=== PATIENT | female | born 1970 | race Hispanic/Latino ===

== ENCOUNTER 2018-01-28 01:11 | Emergency (ER) | payer SELFPAY ==
[2018-01-28] MEDS ORDERED: LORAZEPAM 1 MG TABLET ONE (02:18)
[2018-01-28 02:44] LABS: Absolute Lymphocytes (CBC) 5.5 K/uL (0.7-4.9); Absolute Monocytes 0.6 K/uL (0.1-1.3); Absolute Neutrophil 6.2 K/uL (1.8-8.0); Basophils % 0.6 % (0-1.3); Eosinophils % 2.7 % (0-4.4); Hematocrit 35.1 % (36.0-45.0); Lymphocytes % 43.3 % (15.3-44.8); MCH 22.9 pg (27.0-35.0); MCV 72.3 fL (80-100); MPV 9.2 fL (7.6-11.3); Monocytes % 4.3 % (3.3-12.3); RBC Red Blood Cell Count 4.86 M/uL (3.86-4.86)
[2018-01-28 02:46] LABS: Protime INR 0.92
[2018-01-28 02:54] LABS: Glucose Level 199 mg/dL (65-120)
[2018-01-28 02:58] LABS: CKMB Creatine Kinase MB 1.8 ng/ml (0.3-4.0)
[2018-01-28 03:00] LABS: ALT/SGPT 31 IU/L (10-60); AST/SGOT 24 IU/L (10-42); Albumin 3.9 g/dL (3.2-5.5); Alkaline Phosphatase 92 IU/L (42-121); BUN Blood Urea Nitrogen 20 mg/dL (6-20); Bilirubin Direct < 0.1 mg/dL (0-0.2); Bilirubin Total 0.4 mg/dL (0.3-1.2); Creatine Phosphokinase 62 IU/L (22-269); Magnesium 1.7 mg/dL (1.8-2.5); Protein, Total 7.6 g/dL (6.0-8.3)
[2018-01-28 03:14] LABS: Bicarbonate 18 mEq/L (21-31); Sodium Level 136 mEq/L (135-145)
[2018-01-28 03:16] LABS: Potassium 2.8 mEq/L (3.6-5.0)
--- NOTE | 2018-01-28 03:37 | ER ---
Nurse's Notes [facility] Name: Ml Grullon Age: 47 yrs Sex: Female : 1970 Arrival Date: 01/28/2018 Time: 01:12 Bed 8 Private MD: Diagnosis: Hypokalemia Presentation: 01/28 01:19 Presenting complaint: Patient states: "I was sleeping and woke up with an anxiety ao attack. I feeling like having chest palpitation." Significant other reports stress event had occurred in the past few months. Patient denies chest pain and is extremely anxious. Transition of care: patient was not received from another setting of care. Onset of symptoms was January 28, 2018 at 00:00. Initial Sepsis Screen: Does the patient meet any 2 criteria? No. Patient's initial sepsis screen is negative. Does the patient have a suspected source of infection? No. Patient's initial sepsis screen is negative. Care prior to arrival: None. 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 - Social history:: Smoking status: Patient/guardian denies using tobacco, Patient/guardian denies using alcohol, street drugs. Screenin:29 Abuse screen: Denies threats or abuse. Denies injuries from another. Nutritional lp1 screening: No deficits noted. Tuberculosis screening: No symptoms or risk factors identified. Fall Risk None identified. Assessment: 01:26 General: Appears distressed, Behavior is anxious. Pain: Denies pain. Neuro: Level of lp1 Consciousness is awake, alert, obeys commands, Oriented to person, place, time, situation. Cardiovascular: Reports palpitations, Capillary refill < 3 seconds in bilateral fingers toes Patient's skin is warm and dry. Rhythm is sinus rhythm. Respiratory: Reports shortness of breath Airway is patent Trachea midline Respiratory effort is even, Respiratory pattern is hyperventilation Breath sounds are clear bilaterally. Onset: The symptoms/episode began/occurred just prior to arrival, the patient has moderate shortness of breath. GI: Abdomen is non-distended. : No signs and/or symptoms were reported regarding the genitourinary system. EENT: No signs and/or symptoms were reported regarding the EENT system. Derm: Skin is pink, warm \\T\\ dry. Musculoskeletal: Circulation, motion, and sensation intact. 02:02 Reassessment: Patient appears more calm at this time, but states she feels anxiety lp1 returning, beginning to hyperventilate, coached for slow deep breathing. 03:30 Reassessment: Patient is alert, oriented x 3, equal unlabored respirations, skin lp1 warm/dry/pink. Patient states feeling better. Patient states symptoms have improved. 03:53 Reassessment: DC instructions given to patient and significant other. Patient agree to ao follow up and the medications regime. Patient has no questions at this time. Vital Signs: 01:22 BP 163 / 90; Pulse 104; Resp 30; Temp 98.4(O); Pulse Ox 100% on R/A; Weight 83.91 kg ao (R); Height 5 ft. 3 in. (160.02 cm) (R); Pain 0/10; 01:29 BP 169 / 79; Pulse 104; Resp 26; Pulse Ox 100% on R/A; lp1 02:01 BP 174 / 82; Pulse 90; Resp 14; Pulse Ox 98% on R/A; lp1 03:00 BP 160 / 73; Pulse 103; Resp 19; Pulse Ox 98% on R/A; lp1 03:54 BP 160 / 79; Pulse 86; Resp 18; Pulse Ox 99% on R/A; ao 01:22 Body Mass Index 32.77 (83.91 kg, 160.02 cm) ao ED Course: 01:12 Patient arrived in ED. ds1 01:22 Triage completed. ao 01:24 Arm band placed on right wrist. Patient placed in an exam room, on a stretcher, on ao oxygen, on pulse oximetry, Patient notified of wait time. 01:25 Marjorie Beal FNP-C is PHCP. snw 01:25 Luann Villalpando MD is Attending Physician. snw 01:25 Anu Peñaloza RN is Primary Nurse. lp1 01:28 Patient has correct armband on for positive identification. Placed in gown. Bed in low lp1 position. project lead on. Pulse ox on. NIBP on. 01:28 EKG done, by ED staff, reviewed by Marjorie BARRERA. eb 01:40 Inserted saline lock: 20 gauge in right antecubital area, using aseptic technique. eb Blood collected. 01:50 X-ray completed. Portable x-ray completed in exam room. Patient tolerated procedure mh1 well. 01:52 XRAY Chest (1 view) In Process Unspecified. EDMS 03:16 Notified ED physician of a critical lab result(s). potassium of 2.8. fc 03:52 No provider procedures requiring assistance completed. IV discontinued, intact, ao bleeding controlled, No redness/swelling at site. Pressure dressing applied. Administered Medications: 02:30 Drug: Ativan 2 mg Route: PO; tl2 03:30 Follow up: Response: Marked relief of symptoms; Anxiety decreased lp1 03:42 Drug: Klor-Con Effervescent Tablet 50 mEq Route: PO; ao 04:00 Follow up: Response: No adverse reaction lp1 Outcome: 03:36 Discharge ordered by . paul 03:52 Discharged to home ambulatory. ao 03:52 Condition: stable 03:52 Discharge instructions given to patient, significant other, Instructed on discharge instructions, follow up and referral plans. Demonstrated understanding of instructions, follow-up care, medications, Prescriptions given X 2. 03:56 Patient left the ED. ao Signatures: Dispatcher [employer] EDVT Marjorie Beal FNP-C FNP-CsnGali Guerrero 1 Katey Cohen RN RN fc Sanford, Demi 1 Anu Peñaloza RN RN lp1 Ronen Pizano RN RN ao Knox, Taylor, RN RN tl2 Luann Villalpando MD MD ma2 Cherie Ball Corrections: (The following items were deleted from the chart) 01:28 01:26 Respiratory: Reports shortness of breath Airway is patent Trachea midline lp1 Respiratory effort is even, Respiratory pattern is hyperventilation Breath sounds are clear bilaterally. lp1
--- NOTE | 2018-01-28 03:37 | EDPHYS ---
Physician Documentation [facility] Name: Ml Grullon Age: 47 yrs Sex: Female : 1970 Arrival Date: 01/28/2018 Time: 01:12 Bed 8 Private MD: ED Physician Luann Villalpando HPI: 01/28 01:50 This 47 yrs old Female presents to ER via Ambulatory with complaints of snw Anxiety, Shortness Of Breath. 01:50 Onset: The symptoms/episode began/occurred acutely. Associated signs and symptoms: The snw patient has no apparent associated signs or symptoms. Modifying factors: The patient symptoms are alleviated by nothing. The patient has experienced similar episodes in the past. The patient has been recently seen by a physician: the patient's primary care provider, with different complaint(s), a Doctor in [place]. Labs performed. Pt told she had hyperlipidemia. 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 - Social history:: Smoking status: Patient/guardian denies using tobacco, Patient/guardian denies using alcohol, street drugs. ROS: 01:49 Eyes: Negative for injury, pain, redness, and discharge, ENT: Negative for injury, snw pain, and discharge, Neck: Negative for injury, pain, and swelling. 01:49 Respiratory: Negative for shortness of breath, cough, wheezing, and pleuritic chest pain, Abdomen/GI: Negative for abdominal pain, nausea, vomiting, diarrhea, and constipation, Back: Negative for injury and pain, : Negative for injury, bleeding, discharge, and swelling, MS/Extremity: Negative for injury and deformity, Skin: Negative for injury, rash, and discoloration, Neuro: Negative for headache, weakness, numbness, tingling, and seizure. 01:49 Constitutional: Positive for malaise. 01:49 Cardiovascular: Positive for palpitations. 01:49 Psych: Positive for anxiety. Exam: 01:44 Constitutional: This is a well developed, well nourished patient who is awake, alert, snw and in no acute distress. Head/Face: Normocephalic, atraumatic. Eyes: Pupils equal round and reactive to light, extra-ocular motions intact. Lids and lashes normal. Conjunctiva and sclera are non-icteric and not injected. Cornea within normal limits. Periorbital areas with no swelling, redness, or edema. ENT: Nares patent. No nasal discharge, no septal abnormalities noted. Tympanic membranes are normal and external auditory canals are clear. Oropharynx with no redness, swelling, or masses, exudates, or evidence of obstruction, uvula midline. Mucous membranes moist. Neck: Trachea midline, no thyromegaly or masses palpated, and no cervical lymphadenopathy. Supple, full range of motion without nuchal rigidity, or vertebral point tenderness. No Meningismus. Chest/axilla: Normal chest wall appearance and motion. Nontender with no deformity. No lesions are appreciated. 01:44 Respiratory: Lungs have equal breath sounds bilaterally, clear to auscultation and percussion. No rales, rhonchi or wheezes noted. No increased work of breathing, no retractions or nasal flaring. Abdomen/GI: Soft, non-tender, with normal bowel sounds. No distension or tympany. No guarding or rebound. No evidence of tenderness throughout. Back: No spinal tenderness. No costovertebral tenderness. Full range of motion. Skin: Warm, dry with normal turgor. Normal color with no rashes, no lesions, and no evidence of cellulitis. MS/ Extremity: Pulses equal, no cyanosis. Neurovascular intact. Full, normal range of motion. Neuro: Awake and alert, GCS 15, oriented to person, place, time, and situation. Cranial nerves II-XII grossly intact. Motor strength 5/5 in all extremities. Sensory grossly intact. Cerebellar exam normal. Normal gait. 01:44 Cardiovascular: Rate: normal, Rhythm: regular, Pulses: no pulse deficits are appreciated, Heart sounds: murmur, systolic, grade 3 over 6, heard in the aortic area, Edema: is not appreciated, JVD: is not appreciated. 01:44 Psych: Affect is panicked . Oriented to person, place, time, Memory is normal. Vital Signs: 01:22 BP 163 / 90; Pulse 104; Resp 30; Temp 98.4(O); Pulse Ox 100% on R/A; Weight 83.91 kg ao (R); Height 5 ft. 3 in. (160.02 cm) (R); Pain 0/10; 01:29 BP 169 / 79; Pulse 104; Resp 26; Pulse Ox 100% on R/A; lp1 02:01 BP 174 / 82; Pulse 90; Resp 14; Pulse Ox 98% on R/A; lp1 03:00 BP 160 / 73; Pulse 103; Resp 19; Pulse Ox 98% on R/A; lp1 03:54 BP 160 / 79; Pulse 86; Resp 18; Pulse Ox 99% on R/A; ao 01:22 Body Mass Index 32.77 (83.91 kg, 160.02 cm) ao MDM: 01:25 Patient medically screened. snw 02:28 Data reviewed: vital signs, nurses notes. Data interpreted: Pulse oximetry: on room air snw is 100 %. Interpretation: normal. Transition of care: After a detail discussion of the patient's case, care is transferred to Luann Villalpando MD. 03:35 Differential diagnosis: Anxiety Reaction reactive airway disease. ED course: patient is ma2 back to baseline lab non critical low K will send home with pcp f/u . 01/28 01:43 Order name: Basic Metabolic Panel; Complete Time: 03:17 snw 01/28 01:43 Order name: BNP; Complete Time: 15:32 snw 01/28 01:43 Order name: CBC with Diff; Complete Time: 15:32 w 01/28 01:43 Order name: Ckmb; Complete Time: 03:17 snw 01/28 01:43 Order name: CPK; Complete Time: 03:17 snw 01/28 01:43 Order name: LFT's; Complete Time: 03:17 w 01/28 01:43 Order name: Magnesium; Complete Time: 03:17 w 01/28 01:43 Order name: PT-INR; Complete Time: 03:16 snw 01/28 01:43 Order name: Ptt, Activated; Complete Time: 03:16 w 01/28 01:43 Order name: Troponin (emerg Dept Use Only); Complete Time: 02:56 w 01/28 01:43 Order name: XRAY Chest (1 view); Complete Time: 15:32 snw 01/28 02:46 Order name: CBC Smear Scan; Complete Time: 15:32 EDMS 01/28 01:43 Order name: Cardiac monitoring; Complete Time: 01:52 snw 01/28 01:43 Order name: EKG - Nurse/Tech; Complete Time: 01:45 snw 01/28 01:43 Order name: IV Saline Lock; Complete Time: 01:45 snw 01/28 01:43 Order name: Labs collected and sent; Complete Time: 01:45 snw 01/28 01:43 Order name: O2 Per Protocol; Complete Time: 01:52 snw 01/28 01:43 Order name: O2 Sat Monitoring; Complete Time: :52 snw 01/28 01:43 Order name: Urine Dipstick-Ancillary (obtain specimen); Complete Time: 02:55 snw Administered Medications: 02:30 Drug: Ativan 2 mg Route: PO; tl2 03:30 Follow up: Response: Marked relief of symptoms; Anxiety decreased lp1 03:42 Drug: Klor-Con Effervescent Tablet 50 mEq Route: PO; ao 04:00 Follow up: Response: No adverse reaction lp1 Disposition: 03:35 Co-signature as Attending Physician, Luann Villalpando MD. ma2 Disposition: 01/28/18 03:36 Discharged to Home. Impression: Hypokalemia. - Condition is Stable. - Discharge Instructions: Potassium Content of Foods, Hypokalemia. - Prescriptions for Klor- Con 10 10 mEq Oral Tablet Sustained Release - take 1 tablet by ORAL route once daily; 20 tablet. Valium 5 mg Oral Tablet - take 1 tablet by ORAL route every 8 hours As needed; 20 tablet. - Medication Reconciliation Form, Thank You Letter, Antibiotic Education, Prescription Opioid Use form. - Work release form (01/28/18 04:20). ao - Follow up: Private Physician; When: Tomorrow; Reason: Continuance of care. - Problem is new. - Symptoms are resolved. Signatures: Dispatcher [employer] EDCO Marjorie Beal FNP-C POUCH MAKER-Csnw Ronen Pizano RN RN ao Farideh Bright RN RN 2 Luann Villalpando MD MD nj2 Anu Peñaloza RN lp1 Corrections: (The following items were deleted from the chart) 03:56 03:36 01/28/2018 03:36 Discharged to Home. Impression: Hypokalemia. Condition is ao Stable. Forms are Medication Reconciliation Form, Thank You Letter, Antibiotic Education, Prescription Opioid Use. Follow up: Private Physician; When: Tomorrow; Reason: Continuance of care. Problem is new. Symptoms are resolved. ma2
[2018-01-28] MEDS ORDERED: POTASSIUM 25 MEQ EFFERV TAB ONE (03:38)
[2018-01-28 04:29] LABS: Anisocytosis SLIGHT; Blood Morphology Comment NOTED (NOT SEEN); Platelet Estimate ADEQ; Urine White Blood Cell Casts OK
--- NOTE | 2018-01-28 12:11 | RAD REPORT ---
EXAM DESCRIPTION: RAD - Chest Single View - 01/28/2018 1:54 am CLINICAL HISTORY: Chest pain, hypertension COMPARISON: None. FINDINGS: Portable technique limits examination quality. The lungs are underinflated but grossly clear. The heart is mildly enlarged in size. No displaced fra ctures. IMPRESSION: Underinflated lungs.
--- NOTE | 2018-01-29 09:16 | EKG ---
Test Date: 2018-01-28 Test Time: 01:28:38 Rn Oncology Clinical: [place] MEASUREMENT RESULTS: Intervals: Rate: 103 OK: 146 QRSD: 80 QT: 350 QTc: 458 [place]: P: 52 OK: 146 QRS: 70 T: 20 INTERPRETIVE STATEMENTS: Sinus tachycardia non specific ST and T abnormality Abnormal ECG No previous ECG available for comparison Electronically Signed On 01-29-18 09:16:19 CDT by Ryne Arzate
== END 2018-01-28 03:56 | disposition home or self-care (01) ==
LOC: ER 01:11
DX: E87.6 Hypokalemia (principal); I10 Essential (primary) hypertension
CPT/HCPCS: 36415; 71045; 80048; 80076; 82550; 82553; 83735; 83880; 84484; 85025; 85610; 85730; 93005; 99285